=== PATIENT | male | born 1990 | race Caucasian/White ===

== ENCOUNTER 2017-08-29 09:40 | Emergency (ER) | payer SELFPAY ==
[~2017-08-29] VITALS: Ht 177.8 cm; Wt 92.0 kg
[2017-08-29] MEDS ORDERED: LIDOCAINE HCL 1% 20ML VIAL (Pyxis) INJ INFIL ONE (15:00)
[2017-08-29] MEDS ORDERED: LIDOCAINE/EPINEPHR/TETRACAINE 3ML TP ONE (15:00)
[2017-08-29] MEDS ORDERED: BACITRACIN ZINC OINT UDPKT TOP ONE (16:15)
[2017-08-29] MEDS ORDERED: LIDOCAINE HCL/PF 1% 10 MG/ML 5ML VIAL ONE (17:03)
[2017-08-29 18:55] VITALS: BP 134/67
== END 2017-08-29 19:00 | disposition home or self-care (01) ==
LOC: ER 10:25
DX: K64.5 Perianal venous thrombosis (principal); F12.10 Cannabis abuse, uncomplicated
CPT/HCPCS: 99283; J3490; Z7610

== ENCOUNTER 2021-07-01 11:54 | Emergency (ER) | payer MEDICAID ==
[~2021-07-01] VITALS: Ht 175.3 cm; Wt 94.0 kg
[2021-07-01] MEDS ORDERED: IBUPROFEN 600MG TABLET PO ONE (12:15)
[2021-07-01 14:28] VITALS: BP 137/93
[2021-07-01] MEDS ORDERED: IBUPROFEN 600MG TABLET PO NR (14:30)
[2021-07-01] MEDS ORDERED: NAPR-681 PO (14:39)
== END 2021-07-01 14:53 | disposition home or self-care (01) ==
LOC: ER 11:54
DX: M25.512 Pain in left shoulder (principal)
CPT/HCPCS: 73030; 99283